=== PATIENT | female | born 1980 | race Two or more races ===

== ENCOUNTER 2025-09-22 19:58 | Emergency (ER) | payer MEDICAID, OTHER ==
[~2025-09-22] VITALS: Ht 165.1 cm; Wt 72.5 kg
--- NOTE | 2025-09-22 21:30 | DVH ---
CLINICAL INDICATION: LUMBAR BACK PAIN TECHNIQUE: 1 radiographic views of the lumbar spine were obtained. Comparison: None FINDINGS/IMPRESSION: There are no compressed vertebral. No spondylolisthesis.
--- NOTE | 2025-09-22 21:34 | DVH ---
CLINICAL HISTORY: NECK PAIN TECHNIQUE: CT exam of the cervical spine was performed without intravenous contrast. This exam was pe rformed according to our departmental dose optimization program. Up-to-date CT equipment and radiatio n dose reduction techniques are utilized as appropriate. CTDI 55 DLP 1394 COMPARISON: None FINDINGS: There is straightening of the normal cervical lordosis, likely related patient positioning. The verte bral body heights and intervertebral disc spaces are maintained. The prevertebral space is within normal limits. No acute fracture is seen. No high-grade central cliff l or neural foraminal narrowing by CT. IMPRESSION: No CT evidence for acute cervical spine fracture.
--- NOTE | 2025-09-22 21:40 | DVH ---
Procedure: CT HEAD WITHOUT CONTRAST Study Date and Requested Time: 09/22/2025 08:56 PM History: HEADACHE Comparison: None Dose: CTDI: 55.13 mGy DLP: 2.44 mGycm Technique: Multiplanar images obtained through the brain without intravenous contrast. Findings: Normal brain volume and formation. Mild chronic small vessel ischemic changes. No hemorrhages, masses, mass effect, midline shift, herniation or cytotoxic edema following a large v ascular territory. No intra-axial or extra-axial fluid collections. No evidence of hydrocephalus. The basal cisterns are patent. Nonspecific Partially Empty sella. The cerebellar tonsils are in normal position. The cerebellum is u nremarkable. The orbits and globes are unremarkable. Mucous retention cysts dental left maxillary sinus. Otherwis e, the paranasal sinuses and mastoids are clear. There are no worrisome calvarial lesions. Impression: No evidence of acute intracranial abnormality.
[2025-09-22] MEDS ORDERED: CYCL-837 PO (22:29)
[2025-09-22] MEDS ORDERED: ACET500T58 PO (22:29)
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
[2025-09-22] MEDS: HYDROcodone-ACET 5/325MG TAB PO ONE (22:32)
[2025-09-22] MEDS: ONDANSETRON ODT 4 MG TAB PO ONE (22:32)
[2025-09-22 22:36] VITALS: BP 126/86; RESP 14; TEMP 97.5; O2SAT 99
[2025-09-22 22:43] VITALS: PULSE 77
== END 2025-09-22 22:44 | disposition home or self-care (01) ==
LOC: ER 19:58
DX: S16.1XXA Strain of muscle, fascia and tendon at neck level, initial encounter (principal); S39.012A Strain of muscle, fascia and tendon of lower back, initial encounter; S09.8XXA Other specified injuries of head, initial encounter; V89.2XXA Person injured in unspecified motor-vehicle accident, traffic, initial encounter; Y93.I9 Activity, other involving external motion; Y92.488 Other paved roadways as the place of occurrence of the external cause; Y99.8 Other external cause status
CPT/HCPCS: 70450; 72100; 72125; 99284; Q0162